=== PATIENT | female | born 1980 | race African-American/Black ===

== ENCOUNTER 2020-07-10 07:27 | Emergency (ER) | payer OTHER, BC ==
[~2020-07-10] VITALS: Ht 175.3 cm; Wt 136.0 kg
[~2020-07-10 07:27] MED LIST: MOTRIN
[2020-07-10 08:41] VITALS: BP 154/93
[2020-07-10] MEDS ORDERED: ACETAMINOPHEN WITH CODEINE 300/30MG TABLET PO ONE (08:45)
== END 2020-07-10 08:42 | disposition home or self-care (01) ==
LOC: ER 07:27
DX: S00.261A Insect bite (nonvenomous) of right eyelid and periocular area, initial encounter (principal); H01.003 Unspecified blepharitis right eye, unspecified eyelid; Z98.890 Other specified postprocedural states; W57.XXXA Bitten or stung by nonvenomous insect and other nonvenomous arthropods, initial encounter; Y93.89 Activity, other specified; Y92.89 Other specified places as the place of occurrence of the external cause; Y99.8 Other external cause status
CPT/HCPCS: 99283

== ENCOUNTER 2023-11-22 15:41 | Emergency (ER) | payer BC, OTHER ==
[~2023-11-22] VITALS: Ht 177.8 cm; Wt 125.0 kg
[2023-11-22 15:51] VITALS: BP 164/99; PULSE 68; RESP 16; TEMP 100.1; O2SAT 100
[2023-11-22 16:37] LABS: HEMATOCRIT. 39.6 % (36.0-48.0); HEMOGLOBIN. 12.8 g/dL (12.0-16.0); MEAN CORPUSCULAR HEMOGLOBIN 30.5 pg (28.0-32.0); MEAN CORPUSCULAR HGB CONC 32.2 g/dL (31.0-37.0); MEAN CORPUSCULAR VOLUME 94.7 fL (81.0-99.0); PLATELET 185 x1000/uL (130-400); RED BLOOD CELL COUNT 4.18 mill/uL (4.2-5.4); RED CELL DISTRIBUTION WIDTH 14.3 % (11.6-14.6); WHITE BLOOD COUNT 3.6 x1000/uL (4.5-11.0)
[2023-11-22 16:38] LABS: DIFFERENTIAL COMMENT 1
[2023-11-22 16:50] LABS: ALANINE AMINOTRANSFERASE 24 IU/L (10-49); ASPARTATE AMINOTRANSFERASE 33 IU/L (<34); BILIRUBIN TOTAL 0.5 mg/dL (0.1-1.0); CALCIUM 8.9 mg/dL (8.7-10.4); CARBON DIOXIDE 23 mEq/L (21-32); CHLORIDE 109 mEq/L (98-107); CREATININE 0.9 mg/dL (0.6-1.0); GLUCOSE 87 mg/dL (70-105); POTASSIUM 3.9 mEq/L (3.5-5.1); PROTEIN TOTAL 7.5 g/dL (6.0-8.3); SODIUM 136 mEq/L (136-145); UREA NITROGEN BLOOD 9 mg/dL (9-23)
[2023-11-22 17:03] LABS: PLATELET ESTIMATE NORMAL
== END 2023-11-23 07:22 | disposition left against medical advice (07) ==
LOC: ER 15:41
DX: R11.10 Vomiting, unspecified (principal); Z53.21 Procedure and treatment not carried out due to patient leaving prior to being seen by health care provider
CPT/HCPCS: 36415; 80053; 85025; 99281

== ENCOUNTER 2024-07-27 19:13 | Emergency (ER) | payer OTHER ==
[~2024-07-27] VITALS: Ht 175.3 cm; Wt 125.0 kg
[2024-07-27 19:26] VITALS: TEMP 98.2; O2SAT 98; O2SAT 99
[2024-07-27] MEDS ORDERED: AMOXICILLIN/POTASSIUM CLAVULANATE 875/125MG TAB PO ONE (20:15)
[2024-07-27] MEDS ORDERED: AMOX1TAB16 MT (20:22)
[2024-07-27] MEDS ORDERED: CLIN-116 MT (20:29)
[2024-07-27] MEDS ORDERED: CLIN-194 MT (20:29)
[2024-07-27 20:40] VITALS: BP 178/90; PULSE 63; RESP 19
[2024-07-27] MEDS: KETOROLAC 15MG/ML VIAL IM ONE (20:40)
[2024-07-27] MEDS: CLINDAMYCIN HCL 150MG CAPSULE PO NR (20:42)
[2024-07-28] MEDS ORDERED: CLINDAMYCIN HCL 150MG CAPSULE PO SCH ×2
== END 2024-07-27 20:54 | disposition home or self-care (01) ==
LOC: ER 19:13
DX: K04.7 Periapical abscess without sinus (principal); Z88.0 Allergy status to penicillin; Z90.49 Acquired absence of other specified parts of digestive tract; Z98.890 Other specified postprocedural states; Z79.899 Other long term (current) drug therapy
CPT/HCPCS: 96372; 99283; J1885; Z7610